=== PATIENT | female | born 1990 | race Two or more races ===

== ENCOUNTER 2019-05-28 09:47 | Inpatient (IN) | payer BC, OTHER ==
[~2019-05-28] VITALS: Ht 162.6 cm; Wt 130.9 kg
[2019-05-30] MEDS ORDERED: D5%-LACTATED RINGERS 1,000 ML IV SCH (06:25)
[2019-05-30] MEDS ORDERED: OXYTOCIN 30U/ 0.9% NaCL 500ML 500 ML IV ONE (06:25)
[2019-05-30] MEDS ORDERED: TERBUTALINE 1 MG/ML, 1ML IVPush PRN (06:30)
[2019-05-30] MEDS ORDERED: FENTANYL PF 100 MCG/2ML IVPush PRN (06:30)
[2019-05-30] MEDS ORDERED: METOCLOPRAMIDE 5 MG/ML, 2ML IVPush PRN (06:30)
[2019-05-30] MEDS ORDERED: FENTANYL PF 100 MCG/2ML IV PRN (06:30)
[2019-05-30] MEDS ORDERED: ONDANSETRON 2MG/ML, 2ML IVPush PRN (06:30)
[2019-05-30] MEDS ORDERED: TERBUTALINE 1 MG/ML, 1ML SQ PRN (06:30)
[2019-05-30] MEDS ORDERED: CALCIUM CARBONATE 500 MG TAB.CHEW PO PRN (06:30)
[2019-05-30 06:59] LABS: BASOPHILS # (AUTO) 0.04 x10^3/uL (0-0.1); BASOPHILS % (AUTO) 1 % (0-1); EOSINOPHILS # (AUTO) 0.12 x10^3/uL (0-0.4); EOSINOPHILS % (AUTO) 2 % (1-7); LYMPHOCYTES % (AUTO) 24 % (22-44); MD NO; MEAN CORPUSCULAR HEMOGLOBIN 29.1 pg (27.0-34.8); MEAN CORPUSCULAR HGB CONC 33.2 g/dL (32.4-35.8); MEAN CORPUSCULAR VOLUME 87.6 fL (80-100); MEAN PLATELET VOLUME 8.8 fL (7.4-10.4); MONOCYTES # (AUTO) 0.53 x10^3/uL (0.2-0.8); MONOCYTES % (AUTO) 7 % (2-9); NEUTROPHILS % (AUTO) 67 % (42-75); PLATELET COUNT 290 x10^3/uL (130-400); RED BLOOD COUNT 4.38 x10^6/uL (3.82-5.3); RED CELL DISTRIBUTION WIDTH 14.8 % (9.6-15.2)
[2019-05-30] MEDS ORDERED: FLU VACCINE PER PHARMACY IM ONE (07:00)
[2019-05-30] MEDS ORDERED: MISOPROSTOL 25 MCG TABLET VG PRN (07:30)
[2019-05-30] MEDS ORDERED: PENICILLIN GK 5,000,000 UNITS in DEXTROSE 5% 100 ML IVPB ONE (07:30)
[2019-05-30] MEDS ORDERED: MISOPROSTOL 25 MCG TABLET ONE (07:33)
[2019-05-30] MEDS: LACTATED RINGERS 1,000 ML IV SCH ×2 (07:45→13:29)
[2019-05-30] MEDS ORDERED: NEWBORN KIT ONE (08:33)
[2019-05-30] MEDS: PENICILLIN GK 2,500,000 UNITS in DEXTROSE 5% 100 ML IVPB SCH ×3 (11:40→20:31)
[2019-05-30] MEDS ORDERED: LIDOCAINE 1%, 20ML ONE (11:53)
[2019-05-30] MEDS ORDERED: OXYTOCIN 30U/ 0.9% NaCL 500ML 500 ML ONE (11:53)
[2019-05-30] MEDS ORDERED: MISOPROSTOL 200 MCG TABLET ONE (11:53)
[2019-05-30] MEDS ORDERED: OXYTOCIN 30U/ 0.9% NaCL 500ML 500 ML IV PRN (12:26)
[2019-05-30] MEDS ORDERED: FENTANYL PF 500 MCG, BUPIVACAINE/PF 0.5%, 30ML 62.5 ML in SODIUM CHLORIDE 0.9% 177.5 ML IV SCH (19:00)
[2019-05-30] MEDS ORDERED: FENTANYL EPIDCONT SCH (19:12)
[2019-05-30] MEDS ORDERED: BUPIVACAINE EPIDCONT SCH (19:12)
[2019-05-30] MEDS ORDERED: LACTATED RINGERS 1,000 ML IV SCH (19:12)
[2019-05-30] MEDS ORDERED: SODIUM CHLORIDE 0.9% EPIDCONT SCH (19:12)
[2019-05-30] MEDS ORDERED: LACTATED RINGERS 1,000 ML IVBOLUS PRN (19:30)
[2019-05-30] MEDS ORDERED: EPHEDRINE 50 MG/ML, 1ML IVPush PRN (19:30)
[2019-05-30] MEDS ORDERED: NALOXONE 0.4 MG/ML, 1ML IVPush PRN (19:30)
[2019-05-30 21:20] VITALS: BP 137/75
[2019-05-31] MEDS: PENICILLIN GK 2,500,000 UNITS in DEXTROSE 5% 100 ML IVPB SCH (01:07)
[2019-05-31] MEDS ORDERED: FENTANYL PF 100 MCG/2ML ONE ×3 (02:46→06:05)
[2019-05-31] MEDS ORDERED: OXYTOCIN 30U/ 0.9% NaCL 500ML 500 ML ONE ×2 (04:41→06:26)
[2019-05-31] MEDS ORDERED: OXYcodone/APAP 5/325MG TABLET ONE (04:42)
[2019-05-31] MEDS ORDERED: IBUPROFEN 600 MG TABLET ONE (04:42)
[2019-05-31] MEDS: OXYcodone/APAP 5/325MG TABLET PO PRN ×2 (04:45→09:04)
[2019-05-31] MEDS: OXYTOCIN 30U/ 0.9% NaCL 500ML 500 ML IV SCH ×2 (04:45→06:28)
[2019-05-31] MEDS ORDERED: ONDANSETRON 2MG/ML, 2ML IV PRN (05:00)
[2019-05-31] MEDS ORDERED: IBUPROFEN 600 MG TABLET PO PRN (05:00)
[2019-05-31] MEDS ORDERED: OXYTOCIN 10 UNITS/ML, 1ML IM PRN (05:00)
[2019-05-31] MEDS ORDERED: RHOGAM FROM BLOOD BANK 1 NOTE EA IM/IV ONE (05:00)
[2019-05-31] MEDS ORDERED: MISOPROSTOL 200 MCG TABLET PR PRN (05:00)
[2019-05-31] MEDS ORDERED: FENTANYL PF 100 MCG/2ML IVPush PRN (06:09)
[2019-05-31] MEDS ORDERED: METHYLERGONOVINE 0.2 MG/ML IM PRN ×2 (06:20→06:30)
[2019-05-31] MEDS ORDERED: METHYLERGONOVINE 0.2 MG/ML IM ONE (06:22)
[2019-05-31 07:40] VITALS: BP 119/82
[2019-05-31] MEDS: PRENATAL VIT/IRON/FA 1 EACH TABLET PO SCH (08:59)
[2019-05-31] MEDS ORDERED: TRANEXAMIC ACID 100 MG/ML, 10ML ONE (11:04)
[2019-05-31] MEDS ORDERED: TRANEXAMIC ACID 100 MG/ML, 10ML IV ONE ×2 (11:30)
[2019-05-31] MEDS ORDERED: TRANEXAMIC ACID 1,000 MG in SODIUM CHLORIDE 0.9% 100 ML IVPB ONE (11:30)
[2019-05-31] MEDS: OXYcodone/APAP 10/325MG TABLET PO PRN ×3 (11:39→20:22)
[2019-05-31 12:38] LABS: BASOPHILS # (AUTO) 0.06 x10^3/uL (0-0.1); BASOPHILS % (AUTO) 1 % (0-1); EOSINOPHILS % (AUTO) 0 % (1-7); LYMPHOCYTES # (AUTO) 1.79 x10^3/uL (1-3.4); LYMPHOCYTES % (AUTO) 14 % (22-44); MD NO; MEAN CORPUSCULAR HEMOGLOBIN 28.9 pg (27.0-34.8); MEAN CORPUSCULAR HGB CONC 33.5 g/dL (32.4-35.8); MEAN CORPUSCULAR VOLUME 86.3 fL (80-100); MEAN PLATELET VOLUME 8.4 fL (7.4-10.4); MONOCYTES # (AUTO) 0.96 x10^3/uL (0.2-0.8); MONOCYTES % (AUTO) 8 % (2-9); NEUTROPHILS # (AUTO) 9.79 x10^3/uL (1.8-6.8); NEUTROPHILS % (AUTO) 78 % (42-75); PLATELET COUNT 248 x10^3/uL (130-400)
[2019-05-31 13:02] VITALS: BP 93/68
[2019-05-31 16:06] VITALS: BP 101/70
[2019-05-31 20:03] VITALS: BP 113/65
[2019-05-31] MEDS: DOCUSATE 100 MG CAPSULE PO PRN (20:22)
[2019-05-31] MEDS: SIMETHICONE 80 MG CHEW TAB PO PRN (20:22)
[2019-06-01 00:10] VITALS: BP 93/61
[2019-06-01] MEDS: OXYcodone/APAP 10/325MG TABLET PO PRN ×3 (00:29→09:22)
[2019-06-01] MEDS: OXYTOCIN 30U/ 0.9% NaCL 500ML 500 ML IV SCH ×3 (00:37→20:37)
[2019-06-01 04:30] VITALS: BP 112/77
[2019-06-01] MEDS: SIMETHICONE 80 MG CHEW TAB PO PRN (04:40)
[2019-06-01 08:10] VITALS: BP 90/66
[2019-06-01] MEDS: PRENATAL VIT/IRON/FA 1 EACH TABLET PO SCH (09:00)
[2019-06-01] MEDS: DOCUSATE 100 MG CAPSULE PO PRN (17:08)
[2019-06-01] MEDS: FERROUS GLUCONATE 324 MG TABLET PO SCH (17:08)
[2019-06-01 19:42] VITALS: BP 111/71
[2019-06-01] MEDS: OXYcodone/APAP 5/325MG TABLET PO PRN (20:50)
[2019-06-02] MEDS: OXYcodone/APAP 5/325MG TABLET PO PRN ×2 (01:27→06:28)
[2019-06-02] MEDS ORDERED: FLU VACC QS2019-20 36MOS UP/PF 0.5 ML IM-VACC ONE (04:00)
[2019-06-02] MEDS: SIMETHICONE 80 MG CHEW TAB PO PRN (06:28)
[2019-06-02] MEDS: OXYTOCIN 30U/ 0.9% NaCL 500ML 500 ML IV SCH (06:37)
[2019-06-02 08:00] VITALS: BP 106/74
[2019-06-02] MEDS: FERROUS GLUCONATE 324 MG TABLET PO SCH (11:59)
[2019-06-02] MEDS: PRENATAL VIT/IRON/FA 1 EACH TABLET PO SCH (11:59)
[2019-06-02] MEDS: OXYcodone/APAP 10/325MG TABLET PO PRN (12:36)
== END 2019-06-02 13:46 | disposition home or self-care (01) | DRG 768 ==
LOC: LDIP 05-30 06:00 → 2NW 05-31 07:47
PROVIDERS: ADMIT Obstetrics & Gynecology; ATTEND Obstetrics & Gynecology
PROC: 10E0XZZ Delivery of Products of Conception, External Approach (ICD-10-PCS; principal; 2019-05-30)
PROC: 0DQR0ZZ Repair Anal Sphincter, Open Approach (ICD-10-PCS; 2019-05-30)
PROC: 10907ZC Drainage of Amniotic Fluid, Therapeutic from Products of Conception, Via Natural or Artificial Opening (ICD-10-PCS; 2019-05-30)
PROC: 3E0P7VZ Introduction of Hormone into Female Reproductive, Via Natural or Artificial Opening (ICD-10-PCS; 2019-05-30)
PROC: 3E033VJ Introduction of Other Hormone into Peripheral Vein, Percutaneous Approach (ICD-10-PCS; 2019-05-30)
PROC: 10H07YZ Insertion of Other Device into Products of Conception, Via Natural or Artificial Opening (ICD-10-PCS; 2019-05-30)
PROC: 3E0234Z Introduction of Serum, Toxoid and Vaccine into Muscle, Percutaneous Approach (ICD-10-PCS; 2019-05-31)
DX: O99.824 Streptococcus B carrier state complicating childbirth (principal); Z37.0 Single live birth; O70.20 Third degree perineal laceration during delivery, unspecified; O48.0 Post-term pregnancy; O69.81X0 Labor and delivery complicated by cord around neck, without compression, not applicable or unspecified; O99.02 Anemia complicating childbirth; D64.9 Anemia, unspecified; O99.214 Obesity complicating childbirth; E66.9 Obesity, unspecified; Z3A.40 40 weeks gestation of pregnancy
CPT/HCPCS: 36415; J7121; 85025; 85461; 86850; 86870; 86900; 86922; 86923; 90686; G0378; J2540; J2790; J3010; J2210; J2590; J7120

== ENCOUNTER → 2020-01-18 | Outpatient (CLI) | payer OTHER | END | disposition home or self-care (01) | LOC: RAD 07:34 | PROVIDERS: ATTEND Clinical Nurse Specialist | DX: K21.9 Gastro-esophageal reflux disease without esophagitis (principal) | CPT/HCPCS: 74240 ==

== ENCOUNTER → 2020-09-06 | Outpatient (CLI) | payer OTHER ==
[~2020-09-06] MED LIST: INHALER; METH5TAB6 PO; NORE1TAB11 PO
[2020-09-06 14:41] LABS: BASOPHILS % (AUTO) 1 % (0-1); EOSINOPHILS % (AUTO) 2 % (1-7); LYMPHOCYTES % (AUTO) 38 % (22-44); MD NO; MEAN CORPUSCULAR HEMOGLOBIN 29.1 pg (27.0-34.8); MEAN CORPUSCULAR HGB CONC 33.7 g/dL (32.4-35.8); MEAN PLATELET VOLUME 8.2 fL (7.4-10.4); MONOCYTES % (AUTO) 5 % (2-9); NEUTROPHILS % (AUTO) 55 % (42-75); PLATELET COUNT 418 x10^3/uL (130-400); RED BLOOD COUNT 4.75 x10^6/uL (3.82-5.3); RED CELL DISTRIBUTION WIDTH 13.7 % (9.6-15.2)
[2020-09-06 14:49] LABS: ALBUMIN 3.7 g/dL (3.4-5.0); ANION GAP 9 mmol/L (5-15); CALCIUM 9.2 mg/dL (8.5-10.1); CHLORIDE 107 mmol/L (98-107); CREATININE 0.69 mg/dL (0.55-1.02); TOTAL IRON BINDING CAPACITY 462 mcg/dL (250-450)
[2020-09-06 14:57] LABS: % IRON SATURATION 16 % (20-55); ALANINE AMINOTRANSFERASE 40 U/L (12-78); ALKALINE PHOSPHATASE 82 U/L (45-117); BILIRUBIN,TOTAL 0.4 mg/dL (0.2-1.0); IRON LEVEL 74 mcg/dL (50-170); PREALBUMIN 29.8 mg/dL (20.0-40.0); TOTAL PROTEIN 7.9 g/dL (6.4-8.2); TRANSFERRIN 330 mg/dL (200-360)
== END | disposition home or self-care (01) ==
LOC: STAR 13:37
PROVIDERS: ATTEND Thoracic Surgery (Cardiothoracic Vascular Surgery)
DX: Z01.818 Encounter for other preprocedural examination (principal); Z20.822 Contact with and (suspected) exposure to COVID-19
CPT/HCPCS: 36415; 71046; 80053; 82306; 82728; 82746; 83540; 83550; 83970; 84134; 84425; 84466; 85025; 87635; 93005